=== PATIENT | female | born 1985 | race American Indian/Alaskan Native ===

== ENCOUNTER 2020-10-28 06:41 | Emergency (ER) | payer OTHER, MEDICAID ==
[2020-10-28 09:26] VITALS: BP 116/73
[2020-10-28] MEDS ORDERED: IBUPROFEN 600 MG TAB PO ONE (09:51)
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
== END 2020-10-28 10:19 | disposition home or self-care (01) ==
LOC: ED 06:41
DX: S16.1XXA Strain of muscle, fascia and tendon at neck level, initial encounter (principal); Z79.899 Other long term (current) drug therapy; V49.49XA Driver injured in collision with other motor vehicles in traffic accident, initial encounter; Y92.410 Unspecified street and highway as the place of occurrence of the external cause; Y93.89 Activity, other specified; Y99.8 Other external cause status
CPT/HCPCS: 99282